=== PATIENT | male | born 1985 | race Hispanic/Latino ===

== ENCOUNTER → 2017-03-03 | Outpatient (CLI) | payer OTHER ==
[~2017-03-03] MED LIST: CARAFATE1 GM/10 ML PO; CIPRO500 MG PO; COUMADIN5 MG PO; LEVSIN0.125 MG SL; METRONIDAZOLE500 MG PO; NEXIUM40 MG PO; PANTOPRAZOLE SO40 MG PO; PEPCID20 MG PO; PEPTO-BISMOL262 M1 PO; REGLAN10 MG PO; ULTRAM 50MG50 MG PO; ZOFRAN ODT4 MG PO
--- NOTE | 2017-03-03 16:38 | Diagnostic Imaging Report ---
PROCEDURE:US LIVER COMPARISON:[facility], CT, CT ABDOMEN/PELVIS W, 11/10/2016, 15:42. INDICATIONS:Portal Vein Thrombosis TECHNIQUE: Campos-scale and color doppler transverse and longitudinal images of the right upper quadrant of the abdomen were obtained. FINDINGS: Exam limited by overlying bowel gas. Liver: 14.5 cm in right mid-clavicular line. Normal echogenicity. No masses. Main portal vein: 1.1 cm, hepatopetal flow is noted in the portal vein, with luminal contour irregularity. Collateral vessels are noted in the region of the main portal vein, right portal vein, and left portal vein. Gallbladder: Absent Common Bile Duct: 0.4 cm Sonographic Pierre's sign: Negative Right kidney: 10.9 cm. Normal echogenicity. No solid masses or hydronephrosis. Pancreas: Obscured by overlying bowel gas. Inferior vena cava: Patent Aorta: Distal aorta is within normal limits. Proximal and mid aorta are obscured l. Ascites: None in the right upper quadrant of the abdomen. CONCLUSION: 1. Luminal contour irregularity of the main portal vein with collateral vessels in the region of the main portal vein, right portal vein, left portal vein, likely secondary to previously visualized thrombosis, which is likely nonocclusive. There is hepatopetal flow documented in the portal vein. Antony Aviles M.D. Dictated by: Antony vAiles M.D. on 03/03/2017 at 16:46 Electronically approved by: Antony Aviles M.D. on 03/03/2017 at 16:46
== END ==
LOC: US 10:15
PROVIDERS: ATTEND Internal Medicine Gastroenterology
DX: I81 Portal vein thrombosis (principal); I82.890 Acute embolism and thrombosis of other specified veins
CPT/HCPCS: 76705